=== PATIENT | male | born 1995 | race Caucasian/White ===

== ENCOUNTER → 2016-11-17 | Outpatient (CLI) | payer OTHER ==
[~2016-11-17] MED LIST: NASONEX17 GM; VOLTAREN75 MG PO; ZOLOFT50 MG
--- NOTE | ~2016-11-17 | US6 ---
[facility] A Service of [facility] & [facility] RADIOLOGY TEXT RESULTS PATIENT: CATHY MERAZ JR LOCATION: US : [birth year] UNIT #: [id number] AGE: [address]: Ezekiel Alvarenga MD SEX: M ORDER DR: [id number] [facility] [address] [facility]. [place], [place] [address] [id number] O MR#: [id number] Acc #: [id number] NAME: CATHY MERAZ : 1995 SEX: M STUDY DATE/TIME: 11/17/2016 10:42 UNIT: [facility]US ROOM: STUDY DESCRIPTION: US Abdominal Limited Attending Physician: Ezekiel Alvarenga M.D. Referring Physician: Ezekiel Alvarenga M.D. Ordering Physician: Ezekiel Alvarenga M.D. Primary Care Physician: Phyllis Lepe M.D. MEDICAL IMAGING REPORT This report is preliminary unless electronic signature is present EXAM Right upper quadrant ultrasound 11/17/2016 HISTORY Epigastric abdominal pain for 2 years progressively worsening. FINDINGS Ultrasound examination of the gallbladder is negative. There is no cholelithiasis, gallbladder wall thickening, or bile duct dilatation. The visualized liver is negative. IMPRESSION Negative gallbladder ultrasound examination. Dictated by... Ector Hargrove M.D. THIS IS AN ELECTRONICALLY VERIFIED REPORT Ector Hargrove M.D. at 11/18/2016 7:18 AM KRT/to TD: 11/17/2016 15:43 JOB #: [id number] MEDICAL IMAGING REPORT Page 1 of 1 COPY
[2016-11-17 11:13] LABS: HEMATOCRIT 43.3 % (38.0-50.0); HEMOGLOBIN 14.9 gm/dL (13.0-16.0); MEAN CELL VOLUME 97.2 FL (83-96); MEAN CORPUSCULAR HEMOGLOBIN 33.5 PG (28-34); MEAN CORPUSCULAR HGB CONC 34.5 g/dL (30-36); MEAN PLATELET VOLUME 8.1 FL (6.5-11.5); RED BLOOD COUNT 4.46 X10e (3.90-5.60); RED CELL DISTRIBUTION WIDTH 13.3 % (11.0-15.5); WHITE BLOOD COUNT 6.2 X10e3 (4.0-10.5)
[2016-11-17 11:57] LABS: ALBUMIN SERUM 4.4 g/dL (3.5-5.0); BILIRUBIN,TOTAL 1.4 mg/dL (0.2-2.0); BUN/CREATININE RATIO 12.22; CALCIUM SERUM 9.3 mg/dL (8.4-10.2); CREATININE SERUM 0.9 mg/dL (0.6-1.4); GLOM FILT RATE Estimated 120.8 mL/min (>60); POTASSIUM 4.2 mmol/L (3.5-5.1); PROTEIN TOTAL SERUM 6.7 g/dL (6.0-8.3)
== END | disposition home or self-care (01) ==
LOC: CGUS 10:07
PROVIDERS: Internal Medicine
DX: R10.13 Epigastric pain (principal)
CPT/HCPCS: 36415; 76705; 80053; 85027